=== PATIENT | female | born 2000 | race Caucasian/White ===

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

== ENCOUNTER 2019-02-20 16:38 | Emergency (ER) | payer BC ==
--- NOTE | 2019-02-20 17:24 | EDM.PDOC ---
ED HPI GENERAL MEDICAL PROBLEM - General Chief Complaint: Head Injury Stated Complaint: HIT HEAD Time Seen by Provider: 02/20/19 16:45 Source of Information: Reports: Patient History Limitations: Reports: No Limitations - History of Present Illness INITIAL COMMENTS - FREE TEXT/NARRATIVE: History of present illness: []Patient hit her head on a shelf at work approximately noon today without loss of consciousness. Patient shortly after became excessively sleepy and couldn't stay awake. She denies any nausea, vomiting, blurry vision, neck pain or numbness or tingling. Review of systems: As per history of present illness and below otherwise all systems reviewed and negative. Past medical history: As per history of present illness and as reviewed below otherwise noncontributory. Surgical history: As per history of present illness and as reviewed below otherwise noncontributory. Social history: No reported history of drug or alcohol abuse. Family history: As per history of present illness and as reviewed below otherwise noncontributory. Physical exam: General: Well developed, well nourished in NAD HEENT: Atraumatic, there is no hematoma or abrasion on the area on the superior scalp where she hit her head, normocephalic, pupils reactive, negative for conjunctival pallor or scleral icterus, mucous membranes moist, throat clear, neck supple, nontender, no vertebral tenderness to palpation, trachea midline. TMs clear, no hemotympanum Lungs: Clear to auscultation, breath sounds equal bilaterally, chest nontender. Heart: S1S2, regular, negative for clicks, rubs, or JVD. Abdomen: NABS, Soft, nondistended, nontender. Negative for masses or hepatosplenomegaly. Negative for costovertebral tenderness. Pelvis: Stable nontender. Genitourinary: Deferred. Rectal: Deferred. Extremities: Atraumatic, negative for cords or calf pain. Neurovascular unremarkable. Neuro: Awake, alert, oriented. Cranial nerves II through XII unremarkable. Cerebellum unremarkable. Motor and sensory unremarkable throughout. Exam nonfocal. Skin:warm and dry Diagnostics: None Therapeutics: Declined pain meds ED Course: Gave patient option for doing a CT scan versus watching, waiting and returning if symptoms worsens. She opts to return if symptoms worsen. Impression: Blunt head trauma Prescriptions: None Plan: follow up with your primary care physician, return to ER if symptoms worsen or change. Definitive disposition and diagnosis as appropriate pending reevaluation and review of above. general headache Pain Score (Numeric/FACES): 6 - Related Data Allergies Allergy/AdvReac Type Severity Reaction Status Date / Time No Known Allergies Allergy Verified 02/20/19 17:09 Home Meds: Home Meds . [No Known Home Meds] 12/04/17 [History] Past Medical History - Past Health History Medical/Surgical History: Denies Medical/Surgical History HEENT History: Reports: None Cardiovascular History: Reports: None Respiratory History: Reports: None Gastrointestinal History: Reports: None Other Musculoskeletal History: Spondylosis - pt worn back brace for 5 months 8 months ago, has hx of stress fracture in back Neurological History: Reports: Migraines Psychiatric History: Reports: None Endocrine/Metabolic History: Reports: None Immunologic History: Reports: None Oncologic (Cancer) History: Reports: None Dermatologic History: Reports: None - Infectious Disease History Infectious Disease History: Reports: None - Past Surgical History Female Surgical History: Reports: None Endocrine Surgical History: Reports: None Neurological Surgical History: Reports: None Social & Family History - Family History Family Medical History: Noncontributory - Tobacco Use Smoking Status *Q: Current Every Day Smoker Years of Tobacco use: 2 Packs/Tins Daily: 0.5 - Caffeine Use Caffeine Use: Reports: Coffee - Recreational Drug Use Recreational Drug Use: No ED ROS GENERAL - Review of Systems Review Of Systems: See Below ED EXAM, HEAD INJURY - Physical Exam Exam: See Below Course - Vital Signs Last Recorded V/S: Last Vital Signs Temp 97.4 F 02/20/19 17:07 Pulse 83 02/20/19 17:07 Resp 16 02/20/19 17:07 BP 134/92 H 02/20/19 17:07 Pulse Ox 99 02/20/19 17:07 Departure - Departure Time of Disposition: 17:28 Disposition: Home, Self-Care 01 Condition: Good Clinical Impression: Blunt head trauma Qualifiers: Encounter type: initial encounter Qualified Code(s): S09.8XXA - Other specified injuries of head, initial encounter - Discharge Information *PRESCRIPTION DRUG MONITORING PROGRAM REVIEWED*: Not Applicable *COPY OF PRESCRIPTION DRUG MONITORING REPORT IN PATIENT KIRILL: Not Applicable Referrals: PCP,None [Primary Care Provider] - Forms: ED Department Discharge Additional Instructions: The following information is given to patients seen in the emergency department who are being discharged to home. This information is to outline your options for follow-up care. We provide all patients seen in our emergency department with a follow-up referral. The need for follow-up, as well as the timing and circumstances, are variable depending upon the specifics of your emergency department visit. If you don't have a primary care physician on staff, we will provide you with a referral. We always advise you to contact your personal physician following an emergency department visit to inform them of the circumstance of the visit and for follow-up with them and/or the need for any referrals to a consulting specialist. The emergency department will also refer you to a specialist when appropriate. This referral assures that you have the opportunity for follow-up care with a specialist. All of these measure are taken in an effort to provide you with optimal care, which includes your follow-up. Under all circumstances we always encourage you to contact your private physician who remains a resource for coordinating your care. When calling for follow-up care, please make the office aware that this follow-up is from your recent emergency room visit. If for any reason you are refused follow-up, please contact the [facility] Emergency Department at and asked to speak to the emergency department charge nurse. Take meds as directed, follow up with your primary care physician, return to ER if symptoms worsen or change. [facility] [address] [place] [id number]
[2019-02-20 18:54] VITALS: BP 118/75; PULSE 82
== END 2019-02-20 17:40 | disposition home or self-care (01) ==
LOC: MW.ED 16:38
DX: S09.90XA Unspecified injury of head, initial encounter (principal); W22.03XA Walked into furniture, initial encounter; Y92.89 Other specified places as the place of occurrence of the external cause; Y99.0 Civilian activity done for income or pay
CPT/HCPCS: 99282; 99283

== ENCOUNTER 2019-10-17 19:17 | Emergency (ER) | payer BC ==
[2019-10-17] MEDS ORDERED: Sodium Chloride 0.9% 1,000 ML IV ONE (19:51)
[2019-10-17] MEDS ORDERED: Ondansetron 4 MG/2 ML SDV IVPUSH ONE ×2 (19:51→19:58)
--- NOTE | 2019-10-17 19:57 | EDM.PDOC ---
ED HPI GENERAL MEDICAL PROBLEM - General Chief Complaint: Gastrointestinal Problem Stated Complaint: ABDOMINAL PAIN,VOMITTING, MENSTRUATION PAIN Time Seen by Provider: 10/17/19 19:26 Source of Information: Reports: Patient History Limitations: Reports: No Limitations - History of Present Illness INITIAL COMMENTS - FREE TEXT/NARRATIVE: This is a 19-year-old female who presents to the emergency room with chief complaint of nausea vomiting inability to hold down any food for the last 2 to 3 days. Patient states that she has been vomiting for the past month. Patient denies any severe abdominal pain but cannot hold anything down and feels very dehydrated. Onset: Gradual Duration: Chronic (Gone for a month), Getting Worse Location: Reports: Abdomen Severity: Moderate Improves with: Reports: None Worsens with: Reports: None Associated Symptoms: Reports: No Other Symptoms, Nausea/Vomiting epigastric Pain Score (Numeric/FACES): 10 - Related Data Allergies Allergy/AdvReac Type Severity Reaction Status Date / Time No Known Allergies Allergy Verified 10/17/19 19:43 Home Meds: Home Meds Aspirin 81 mg PO DAILY 10/17/19 [History] Control 1 tab PO DAILY 10/17/19 [History] Ondansetron [Zofran ODT] 8 mg PO Q6H PRN #30 tab.dis 10/17/19 [Rx] buprenorphine HCL [Belbuca] 150 mg PO DAILY 10/17/19 [History] Past Medical History - Past Health History Medical/Surgical History: Denies Medical/Surgical History HEENT History: Reports: None Cardiovascular History: Reports: None Respiratory History: Reports: None Gastrointestinal History: Reports: None Genitourinary History: Reports: None 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 Musculoskeletal History: Reports: Other (See Below) Other Musculoskeletal History: Spondylosis - pt worn back brace for 5 months 8 months ago, has hx of stress fracture in back Neurological History: Reports: Migraines Psychiatric History: Reports: None Endocrine/Metabolic History: Reports: None Hematologic History: Reports: None Immunologic History: Reports: None Oncologic (Cancer) History: Reports: None Dermatologic History: Reports: None - Infectious Disease History Infectious Disease History: Reports: None - Past Surgical History Head Surgeries/Procedures: Reports: None HEENT Surgical History: Reports: None Cardiovascular Surgical History: Reports: None Respiratory Surgical History: Reports: None GI Surgical History: Reports: None Female Surgical History: Reports: None Endocrine Surgical History: Reports: None Neurological Surgical History: Reports: None Musculoskeletal Surgical History: Reports: None Oncologic Surgical History: Reports: None Dermatological Surgical History: Reports: None Social & Family History - Family History Family Medical History: Noncontributory - Tobacco Use Smoking Status *Q: Current Some Day Smoker Years of Tobacco use: 3 Packs/Tins Daily: 0.3 - Caffeine Use Caffeine Use: Reports: Coffee, Energy Drinks, Soda, Tea - Recreational Drug Use Recreational Drug Use: Yes Recreational Drug Type: Reports: Marijuana/Hashish Recreational Drug Use Frequency: Rarely ED ROS GENERAL - Review of Systems Review Of Systems: See Below Constitutional: Reports: No Symptoms HEENT: Reports: No Symptoms Respiratory: Reports: No Symptoms Cardiovascular: Reports: No Symptoms Endocrine: Reports: No Symptoms GI/Abdominal: Reports: Abdominal Pain : Reports: No Symptoms Musculoskeletal: Reports: No Symptoms Skin: Reports: No Symptoms Psychiatric: Reports: No Symptoms Hematologic/Lymphatic: Reports: No Symptoms Immunologic: Reports: No Symptoms ED EXAM, GI/ABD - Physical Exam Exam: See Below Exam Limited By: No Limitations General Appearance: Alert, WD/WN, No Apparent Distress Eyes: Bilateral: Normal Appearance Ears: Normal External Exam, Normal Canal, Hearing Grossly Normal, Normal TMs Nose: Normal Inspection Throat/Mouth: Normal Inspection, Normal Lips, Normal Teeth, Normal Gums, Normal Oropharynx, Normal Voice, No Airway Compromise Head: Atraumatic, Normocephalic Neck: Normal Inspection, Supple, Non-Tender, Full Range of Motion Respiratory/Chest: No Respiratory Distress, Lungs Clear, Normal Breath Sounds, No Accessory Muscle Use, Chest Non-Tender Cardiovascular: Normal Peripheral Pulses, Regular Rate, Rhythm, No Edema, No Gallop, No JVD, No Murmur, No Rub GI/Abdominal Exam: Normal Bowel Sounds, Soft, Non-Tender, No Organomegaly, No Distention, No Abnormal Bruit, No Mass (Female) Exam: Deferred Rectal (Female) Exam: Deferred Back Exam: Normal Inspection, Full Range of Motion Extremities: Normal Inspection, Normal Range of Motion, Non-Tender, Normal Capillary Refill, No Pedal Edema Neurological: Alert, Oriented, CN II-XII Intact, Normal Cognition, Normal Gait, Normal Reflexes, No Motor/Sensory Deficits Psychiatric: Normal Affect, Normal Mood Skin Exam: Warm, Dry, Intact, Normal Color, No Rash Lymphatic: No Adenopathy Course - Vital Signs Text/Narrative:: 19-year-old female presents to the emergency room chief complaint of abdominal pain nausea and vomiting this been going on for a month. Patient's electrolytes appear to be normal. Patient given IV fluids states she feels better. Patient also given Zofran. Still having some abdominal pain. Patient will be discharged home to see follow-up with a physician. Last Recorded V/S: Last Vital Signs Temp 97.4 F 10/17/19 19:41 Pulse 112 H 10/17/19 19:41 Resp 18 10/17/19 19:41 BP Pulse Ox 98 10/17/19 19:41 - Orders/Labs/Meds Orders: Active Orders 24 hr Category Date Time Status MVI, Adult with Vitamin K [Infuvite Adult] 10 ml Med 10/17/19 21:00 Active Thiamine [Vitamin B-1] 100 mg Folic Acid 1 mg Sodium Chloride 0.9% [Normal Saline] 1,000 ml IV ONETIME Medication Orders Multivitamins/Minerals 10 ml/Thiamine HCl 100 mg/ Folic Acid 1 mg/ Sodium Chloride 1,011.2 mls @ 200 mls/hr IV ONETIME ONE Stop: 10/18/19 02:03 Last Admin: 10/17/19 22:08 Dose: 999 mls/hr Labs: Laboratory Tests 10/17/19 10/17/19 10/17/19 Range/Units 19:46 20:08 20:08 WBC 14.81 H (4.0-11.0) K/uL RBC 4.67 (4.30-5.90) M/uL Hgb 13.9 (12.0-16.0) g/dL Hct 42.0 (36.0-46.0) % MCV 89.9 (80.0-98.0) fL MCH 29.8 (27.0-32.0) pg MCHC 33.1 (31.0-37.0) g/dL RDW Std Deviation 42.4 (28.0-62.0) fl RDW Coeff of Felicity 13 (11.0-15.0) % Plt Count 329 (150-400) K/uL MPV 9.60 (7.40-12.00) fL Neut % (Auto) 64.2 (48.0-80.0) % Lymph % (Auto) 24.7 (16.0-40.0) % Schley % (Auto) 8.2 (0.0-15.0) % Eos % (Auto) 2.2 (0.0-7.0) % Baso % (Auto) 0.7 (0.0-1.5) % Neut # (Auto) 9.5 H (1.4-5.7) K/uL Lymph # (Auto) 3.7 H (0.6-2.4) K/uL Schley # (Auto) 1.2 H (0.0-0.8) K/uL Eos # (Auto) 0.3 (0.0-0.7) K/uL Baso # (Auto) 0.1 (0.0-0.1) K/uL Nucleated RBC % 0.0 /100WBC Nucleated RBCs # 0 K/uL Sodium 138 (136-145) mmol/L Potassium 3.3 L (3.5-5.1) mmol/L Chloride 103 (98-107) mmol/L Carbon Dioxide 25.5 (21.0-32.0) mmol/L BUN 12 (7.0-18.0) mg/dL Creatinine 1.0 (0.6-1.0) mg/dL Est Cr Clr Drug Dosing 77.49 mL/min Estimated GFR (MDRD) > 60.0 ml/min Glucose 96 (74-106) mg/dL Calcium 8.9 (8.5-10.1) mg/dL Total Bilirubin 0.5 (0.2-1.0) mg/dL AST 28 (15-37) IU/L ALT 43 (14-63) IU/L Alkaline Phosphatase 66 (46-116) U/L Total Protein 7.0 (6.4-8.2) g/dL Albumin 3.7 (3.4-5.0) g/dL Globulin 3.3 (2.6-4.0) g/dL Albumin/Globulin Ratio 1.1 (0.9-1.6) Lipase 72 L (73-393) U/L Urine HCG, Qual NEGATIVE (NEGATIVE) Meds: Medications Generic Name Dose Route Start Last Admin Trade Name Freq PRN Reason Stop Dose Admin Multivitamins/Minerals 10 ml/ 1,011.2 mls @ 200 mls/hr 10/17/19 21:00 22:08 Thiamine HCl 100 mg/ Folic IV 10/18/19 02:03 999 mls/hr Acid 1 mg/ Sodium Chloride ONETIME ONE Administration Discontinued Medications Generic Name Dose Route Start Last Admin Trade Name Yoko PRN Reason Stop Dose Admin Sodium Chloride 1,000 mls @ 1,000 mls/hr 10/17/19 19:51 10/17/19 20:09 Normal Saline IV 10/17/19 20:50 1,000 mls/hr .Bolus ONE Administration Iopamidol 100 ml 10/17/19 21:41 10/17/19 21:42 Isovue-370 (76%) IVPUSH 10/17/19 21:42 100 ml ONETIME ONE Administration Ondansetron HCl 8 mg 10/17/19 19:58 10/17/19 20:09 Zofran IVPUSH 10/17/19 19:59 8 mg ONETIME ONE Administration Departure - Departure Time of Disposition: 22:30 Disposition: Home, Self-Care 01 Condition: Good Clinical Impression: Gastroenteritis - Discharge Information Instructions: Viral Gastroenteritis, Adult, [id number] Referrals: PCP,None [Primary Care Provider] - Forms: ED Department Discharge Additional Instructions: Patient needs to follow-up with GI. Sepsis Event Note - Evaluation Sepsis Screening Result: No Definite Risk - Focused Exam Vital Signs: Vital Signs Temp Pulse Resp Pulse Ox 10/17/19 19:41 97.4 F 112 H 18 98 Date Exam was Performed: 10/17/19 Time Exam was Performed: 22:28 - My Orders Last 24 Hours: My Active Orders 10/17/19 21:00 MVI, Adult with Vitamin K [Infuvite Adult] 10 ml Thiamine [Vitamin B-1] 100 mg Folic Acid 1 mg Sodium Chloride 0.9% [Normal Saline] 1,000 ml IV ONETIME - Assessment/Plan Last 24 Hours: My Active Orders 10/17/19 21:00 MVI, Adult with Vitamin K [Infuvite Adult] 10 ml Thiamine [Vitamin B-1] 100 mg Folic Acid 1 mg Sodium Chloride 0.9% [Normal Saline] 1,000 ml IV ONETIME
[2019-10-17 20:51] LABS: BLOOD UREA NITROGEN,BUN 12 mg/dL (7.0-18.0); CARBON DIOXIDE,CO2 25.5 mmol/L (21.0-32.0); CHLORIDE,CL 103 mmol/L (98-107); GLUCOSE RANDOM 96 mg/dL (74-106); LIPASE 72 U/L (73-393); POTASSIUM,K 3.3 mmol/L (3.5-5.1); SODIUM,NA 138 mmol/L (136-145)
[2019-10-17] MEDS ORDERED: MVI, Adult with Vitamin K 10 ML, Thiamine 100 MG, Folic Acid 1 MG in Sodium Chloride 0.... IV ONE ×4 (21:00)
[2019-10-17] MEDS ORDERED: Iopamidol 755 Mg/ML 100 ML Bottle IVPUSH ONE (21:41)
--- NOTE | 2019-10-17 21:58 | CT ---
CT abdomen and pelvis Technique: Multiple axial sections were obtained from above the dome of the diaphragm inferiorly through the pubic symphysis. Intravenous contrast was utilized. No oral contrast has been given. Comparison: No prior abdominal imaging is available. Findings: Visualized portions of both lung bases show nothing acute. Very small nodule is identified within the right middle lobe measuring less than 1 mm which is believed to be incidental. Several small subpleural nodules are also seen within the left lung base also felt to be incidental. Low density is noted next to the ligamentum teres fissure which is believed to be normal. No focal abnormality is otherwise appreciated within the liver. Spleen appears normal. Adrenal glands show no nodule. Kidneys show symmetric contrast enhancement without hydronephrosis or mass. Pancreas is within normal limits. Gallbladder contains no calcified gallstones. Aorta shows no aneurysm. No retroperitoneal adenopathy or mesenteric abnormalities are seen. Appendix is seen which is normal in size. No pelvic mass or adenopathy is seen. No free fluid or inflammatory change is seen. Bone window settings were reviewed. Spondylolytic defects are noted at L5-S1 with no spondylolisthesis. No additional bony abnormality is appreciated. Impression: 1. Spondylolisthesis defects at L5-S1 with no spondylolisthesis. 2. Other findings believed to be incidental as noted above. 3. Nothing acute is appreciated on CT study of the abdomen and pelvis. Diagnostic code #2 This report was dictated in MDT
[2019-10-17] MEDS ORDERED: Ketorolac 30 MG/ML SDV IVPUSH ONE (22:30)
[2019-10-17 22:55] VITALS: BP 125/89; PULSE 89
== END 2019-10-17 22:47 | disposition home or self-care (01) ==
LOC: MW.ED 19:17
DX: K52.9 Noninfective gastroenteritis and colitis, unspecified (principal); F17.210 Nicotine dependence, cigarettes, uncomplicated; Z79.82 Long term (current) use of aspirin
CPT/HCPCS: 36415; 74177; 80053; 81025; 83690; 85025; 96361; 96365; 96375; 99284; J1885; J2405; J3411; J7030; Q9967; 99283

== ENCOUNTER 2019-12-11 06:34 | Day surgery (SDC) | payer BC ==
[~2019-12-11 06:34] MED LIST: Lactated Ringers 1,000 ML IV SCH; Sodium Chloride 0.9% 10 ML SDV IV PRN; Sodium Chloride 0.9% 10 ML Syringe FLUSH PRN; Sodium Chloride 0.9% 2.5 ML Syringe FLUSH PRN; ceFAZolin 2 GM in Premix Bag 1 BAG IV ONE
[2019-12-11] MEDS ORDERED: Scopolamine 1.5 MG Transdermal Patch TRDERM PRN (06:58)
[2019-12-11] MEDS ORDERED: Scopolamine 1.5 MG Transdermal Patch ONE (06:59)
--- NOTE | 2019-12-11 07:04 | PCM.PREANE ---
Preanesthetic Assessment - Anesthesia/Transfusion/Family Hx Anesthesia History: No Prior Anesthesia Family History of Anesthesia Reaction: No Transfusion History: No Prior Transfusion(s) Intubation History: Unknown - Review of Systems General: No Symptoms Pulmonary: No Symptoms Cardiovascular: No Symptoms Gastrointestinal: No Symptoms Neurological: No Symptoms Other: Reports: None - Physical Assessment Vital Signs: Last Vital Signs Temp 36.2 C 12/11/19 06:42 Pulse 90 12/11/19 06:42 Resp 16 12/11/19 06:42 BP 130/72 12/11/19 06:42 Pulse Ox 97 12/11/19 06:42 Height: 5 ft 4 in Weight: 93.44 kg ASA Class: 2 Mental Status: Alert & Oriented x3 Airway Class: Mallampati = 1 Dentition: Reports: Normal Dentition (two small chips on front upper incisors) Thyro-Mental Finger Breadths: 3 Mouth Opening Finger Breadths: 3 ROM/Head Extension: Full Lungs: Clear to Auscultation, Normal Respiratory Effort Cardiovascular: Regular Rate, Regular Rhythm - Lab Values: Laboratory Last Values Urine HCG, Qual NEGATIVE (NEGATIVE) 12/11/19 06:45 - Allergies Allergies/Adverse Reactions: Allergies Allergy/AdvReac Type Severity Reaction Status Date / Time Bleach (Sodium Hypochlorite) Allergy Rash Verified 12/07/19 10:33 - Blood Blood Available: No - Anesthesia Plan Pre-Op Medication Ordered: None - Acknowledgements Anesthesia Type Planned: General Anesthesia Pt an Appropriate Candidate for the Planned Anesthesia: Yes Alternatives and Risks of Anesthesia Discussed w Pt/Guardian: Yes Pt/Guardian Understands and Agrees with Anesthesia Plan: Yes PreAnesthesia Questionnaire - Past Health History Medical/Surgical History: Denies Medical/Surgical History HEENT History: Reports: Other (See Below) Other HEENT History: wears glasses Cardiovascular History: Reports: None Respiratory History: Reports: None Gastrointestinal History: Reports: Chronic Diarrhea, GERD, Other (See Below) Other Gastrointestinal History: nausea and vomiting Genitourinary History: Reports: None 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 Musculoskeletal History: Reports: Fracture Other Musculoskeletal History: occasional back pain, hx of stress fx in back- wore brace Neurological History: Reports: Concussion, Migraines Psychiatric History: Reports: Anxiety, Depression Endocrine/Metabolic History: Reports: Obesity/BMI 30+ (BMI 35.4) Hematologic History: Reports: None Immunologic History: Reports: None Oncologic (Cancer) History: Reports: None Dermatologic History: Reports: None - Infectious Disease History Infectious Disease History: Reports: None - Past Surgical History Head Surgeries/Procedures: Reports: None - SUBSTANCE USE Smoking Status *Q: Current Every Day Smoker (1 ppd) Tobacco Use Within Last Twelve Months: Cigarettes Recreational Drug Use History: Yes Recreational Drug Type: Reports: Marijuana/Hashish - HOME MEDS Home Medications: Home Meds Ondansetron [Zofran ODT] 8 mg PO Q6H PRN #30 tab.dis 10/17/19 [Rx] Zofran Patch 1 patch TOP ASDIRECTED 12/07/19 [History] - CURRENT (IN HOUSE) MEDS Current Meds: Current Medications Lactated Ringer's (Ringers, Lactated) 1,000 mls @ 125 mls/hr IV ASDIRECTED STONEY Sodium Chloride (Saline Flush) 2.5 ml FLUSH ASDIRECTED PRN PRN Reason: Keep Vein Open Sodium Chloride (Normal Saline) 10 ml IV ASDIRECTED PRN PRN Reason: IV Use Sodium Chloride (Saline Flush) 10 ml FLUSH ASDIRECTED PRN PRN Reason: Keep Vein Open Discontinued Medications Cefazolin Sodium/Dextrose 2 gm (/ Premix) 50 mls @ 100 mls/hr IV ONETIME ONE Stop: 12/09/19 23:27
[2019-12-11] MEDS ORDERED: Dexamethasone 4 MG/ML 5 ML MDV ONE (07:10)
[2019-12-11] MEDS ORDERED: Lidocaine 2% 5 ML SDV ONE ×2 (07:10→07:50)
[2019-12-11] MEDS ORDERED: Ondansetron 4 MG/2 ML SDV ONE (07:10)
[2019-12-11] MEDS ORDERED: Ketamine 500 mg/10 ML MDV ONE (07:11)
[2019-12-11] MEDS ORDERED: Midazolam 1 MG/ML 2 ML SDV ONE (07:11)
[2019-12-11] MEDS ORDERED: fentaNYL 250 MCG/5 ML SDV ONE (07:11)
[2019-12-11] MEDS ORDERED: Propofol 200 MG/20 ML SDV ONE ×2 (07:11)
[2019-12-11] MEDS ORDERED: Rocuronium Bromide 50 MG/5 ML Syringe ONE (07:17)
[2019-12-11] MEDS ORDERED: Bupivacaine 0.5% 30 ML SDV ONE (07:30)
[2019-12-11] MEDS ORDERED: ceFAZolin/Dextrose,Iso-Osmotic 2 GM/50 ML Duplex Bag IV ONE (08:00)
[2019-12-11] MEDS ORDERED: Glycopyrrolate 0.2 MG/ML SDV ONE ×2 (08:37→09:08)
[2019-12-11] MEDS ORDERED: Ketorolac 30 MG/ML SDV ONE (09:10)
[2019-12-11] MEDS ORDERED: Acetaminophen 1,000 MG in Premix Bag 1 BAG IV ONE (09:40)
[2019-12-11] MEDS ORDERED: Acetaminophen/oxyCODONE 325-5 MG Tab PO PRN (09:49)
--- NOTE | 2019-12-11 09:53 | PCM.OPNOTE ---
- General Post-Op/Procedure Note Date of Surgery/Procedure: 12/11/19 Operative Procedure(s): Laparoscopic cholecystectomy Findings: Normal appearing gallbladder Pre Op Diagnosis: Biliary dyskinesia Post-Op Diagnosis: same Anesthesia Technique: General ET Tube Primary Surgeon: Domi Medina Fluid Replacement, Intraop: 2,000 Output, Urine Amount: 10 EBL in mLs: 5 Condition: Good
[2019-12-11] MEDS: fentaNYL 100 MCG/2 ML SDV IVPUSH PRN ×2 (10:01→10:07)
--- NOTE | 2019-12-11 10:28 | PCM.POSTAN ---
POST ANESTHESIA ASSESSMENT - MENTAL STATUS Mental Status: Alert, Oriented - VITAL SIGNS Vital Signs: Last Vital Signs Temp 35.9 C L 12/11/19 09:31 Pulse 74 12/11/19 10:11 Resp 12 12/11/19 10:11 BP 106/41 L 12/11/19 10:11 Pulse Ox 99 12/11/19 10:11 - RESPIRATORY Respiratory Status: Respiratory Rate WNL, Airway Patent, O2 Saturation Stable - CARDIOVASCULAR CV Status: Pulse Rate WNL, Blood Pressure Stable - GASTROINTESTINAL GI Status: No Symptoms - PAIN Pain Score: 4 - POST OP HYDRATION Hydration Status: Adequate & Stable - OBSERVATIONS Free Text/Narrative:: No anesthesia problems
[2019-12-11 10:53] VITALS: BP 109/52; PULSE 56
--- NOTE | 2019-12-11 11:37 | PCM48HPAN ---
Post Anesthesia Note - EVALUATION WITHIN 48HRS OF ANESTHETIC Vital Signs in Normal Range: Yes Patient Participated in Evaluation: Yes Respiratory Function Stable: Yes Airway Patent: Yes Cardiovascular Function Stable: Yes Hydration Status Stable: Yes Pain Control Satisfactory: Yes Nausea and Vomiting Control Satisfactory: Yes Mental Status Recovered: Yes Vital Signs: Last Vital Signs Temp 36.3 C 12/11/19 10:22 Pulse 56 L 12/11/19 10:52 Resp 14 12/11/19 10:52 BP 109/52 L 12/11/19 10:52 Pulse Ox 98 12/11/19 10:52 - COMMENTS/OBSERVATIONS Free Text/Narrative:: No anesthesia problems
--- NOTE | 2019-12-11 13:46 | OR ---
SURGEON: DOMI MEDINA MD DATE OF PROCEDURE: 12/11/2019 PREOPERATIVE DIAGNOSIS: Biliary dyskinesia. POSTOPERATIVE DIAGNOSIS: Biliary dyskinesia. PROCEDURE PERFORMED: Laparoscopic cholecystectomy. PRIMARY SURGEON: Doim Medina MD. ANESTHESIA: General endotracheal anesthesia. FLUIDS: 2000 mL crystalloid. ESTIMATED BLOSS LOSS: 5 mL. URINE OUTPUT: 10 mL. FINDINGS: Normal-appearing gallbladder. COMPLICATIONS: None. INDICATIONS: The patient is a 19-year-old female who presents with biliary dyskinesia. She has had 2 months of severe postprandial nausea and abdominal pain. A recent HIDA scan showed an ejection fraction of 9% consistent with biliary dyskinesia. I explained the need for cholecystectomy. I described both the laparoscopic and open procedure to the patient. I will attempt this laparoscopically, but convert to open should I be unable to perform it safely. I explained the expected perioperative course as well as the risks including bleeding, infection, or damage to surrounding structures. The patient verbalized understanding and wishes to proceed. PROCEDURE IN DETAIL: The patient was brought into the OR and placed on the OR table in supine position. A time-out was completed verifying the patient's name, age, date of , allergies, and procedure to be performed. General endotracheal anesthesia was induced. The left arm was tucked to the patient's side and a Beaver catheter placed. The abdomen was prepped and draped in usual standard fashion. I anesthetized the infraumbilical fold with 0.5% Marcaine plain. An 11 blade was used to make an incision along the infraumbilical fold. Cautery was used to dissect down through to the subcutaneous fat layer. I then bluntly dissected down to the fascia. The fascia was elevated with Talha's and incised sharply with a curved Mata scissors. I grasped the posterior sheath and opened this up in a similar fashion. I then grasped the peritoneum with hemostats and opened this as well. Entry into the abdomen was palpated digitally. A 12 mm Kecia trocar was placed in the abdomen and the abdomen insufflated. A 5 mm 30- degree scope was inserted. I inspected the area underneath my initial trocar placement. No damage to surrounding structures was noted. The patient was then placed into reverse Trendelenburg position and airplaned slightly to the left. A 5 mm trocars were placed in the following locations under direct visualization; one in the epigastric area, one in the right flank, and one 2 fingerbreadths below the right subcostal margin in the midclavicular line. The dome of the gallbladder was grasped and elevated cranially. The patient had no adhesions to the gallbladder and the gallbladder overall appeared normal. I began my dissection along the infundibulum. Using a combination of blunt dissection and hook cautery, I dissected the peritoneal attachments around the cystic duct and artery. I then dissected the gallbladder off the proximal one- third of the cystic plate. Once my critical view was achieved, a photograph was taken. I doubly clipped and ligated both my cystic duct and artery. I then removed the gallbladder from the gallbladder fossa using electrocautery. Once it was freed from the liver bed, it was placed in an Endo Catch bag and removed through the infraumbilical port site. A trocar was placed back in the abdomen and I inspected my operative field. The area was hemostatic with no evidence of bile leakage. The clips appeared to be in good position. The 5 mm trocars were then removed under direct visualization and the abdomen allowed to desufflate. The 12 mm Kecia trocar was removed as well. I closed the fascia at the infraumbilical port site with interrupted 0 Vicryl sutures. The subcutaneous fat layer was closed with interrupted 3-0 Vicryl sutures. The skin was closed with a running 4-0 Monocryl stitch. The 5 mm trocar sites were closed with interrupted 4-0 Monocryl sutures. Steri-Strips and sterile dressings were applied. The patient tolerated the procedure well and was transferred to the PACU in stable condition. The patient was given another L of fluid in the PACU and started to have good urine output. The Beaver was then removed. All counts were complete and correct at the end of the case. ANTONETTE / MARC /[id number]
== END 2019-12-11 11:48 | disposition home or self-care (01) ==
LOC: MW.SDS 06:34
PROVIDERS: ATTEND Surgery
DX: K81.1 Chronic cholecystitis (principal); F41.9 Anxiety disorder, unspecified; F32.9 Major depressive disorder, single episode, unspecified; G89.29 Other chronic pain; M43.17 Spondylolisthesis, lumbosacral region; F17.210 Nicotine dependence, cigarettes, uncomplicated; K21.9 Gastro-esophageal reflux disease without esophagitis; Z79.899 Other long term (current) drug therapy; Z68.35 Body mass index [BMI] 35.0-35.9, adult; Z79.82 Long term (current) use of aspirin
CPT/HCPCS: 00790; 81025; 88304; A9270-GY; J0131; J0690; J1100; J1885; J2001; J2250; J2405; J2704; J3010; J3490; J7120

== ENCOUNTER 2021-06-15 09:50 | Inpatient (IN) | payer OTHER, MEDICAID ==
[2021-06-15] MEDS ORDERED: Acetaminophen 500 MG Tab PO ONE (10:38)
[2021-06-15] MEDS ORDERED: Tranexamic Acid 1,000 MG in Sodium Chloride 0.9% 100 ML IV PRN (11:35)
[2021-06-15] MEDS ORDERED: Carboprost Tromethamine 250 MCG/1 ML Amp IM PRN (11:35)
[2021-06-15] MEDS ORDERED: Sodium Chloride 0.9% 20 ML SDV IV PRN (11:35)
[2021-06-15] MEDS ORDERED: Methylergonovine 0.2 MG/1 ML Amp IM PRN (11:35)
[2021-06-15] MEDS ORDERED: Sodium Chloride 0.9% 10 ML Syringe FLUSH PRN (11:35)
[2021-06-15] MEDS ORDERED: Misoprostol 200 MCG Tab PO PRN (11:35)
[2021-06-15] MEDS ORDERED: Water For Irrigation,Sterile 1,000 ML Container IRR PRN (11:35)
[2021-06-15] MEDS ORDERED: Sodium Chloride 0.9% 2.5 ML Syringe FLUSH PRN (11:35)
[2021-06-15] MEDS ORDERED: Nalbuphine 10 MG/1 ML Vial IVPUSH PRN (11:35)
[2021-06-15] MEDS ORDERED: Lidocaine 1% 20 ML MDV INJECT PRN (11:40)
[2021-06-15] MEDS ORDERED: Oxytocin/0.9 % Sodium Chloride 30 UNIT/500 ML BAG IV SCH ×2 (11:45→21:45)
[2021-06-15] MEDS: Butorphanol 1 MG/ML SDV IVPUSH PRN ×2 (13:12→22:13)
[2021-06-15] MEDS: Lactated Ringers 1,000 ML IV SCH (23:47)
[2021-06-16] MEDS: Butorphanol 1 MG/ML SDV IVPUSH PRN (01:49)
[2021-06-16] MEDS: Lactated Ringers 1,000 ML IV SCH (02:50)
[2021-06-16] MEDS ORDERED: Ropivacaine HCl/PF 100 ML ONE (03:13)
[2021-06-16] MEDS ORDERED: Ropivacaine HCl/PF 200 MG in Premix Bag 1 BAG EPIDUR SCH (03:30)
[2021-06-16] MEDS ORDERED: ePHEDrine 50 MG/ML SDV IVPUSH PRN (03:30)
[2021-06-16] MEDS ORDERED: Lanolin 100% Cream 7 GM Tube TOP PRN (09:22)
[2021-06-16] MEDS ORDERED: Benzocaine/Menthol 20%-0.5% Spray 78 GM Cannister TOP PRN (09:22)
[2021-06-16] MEDS ORDERED: Ibuprofen 800 MG Tab PO PRN (09:22)
[2021-06-16] MEDS ORDERED: Bisacodyl 10 MG Supp RECTAL PRN (09:22)
[2021-06-16] MEDS ORDERED: Acetaminophen 500 MG Tab PO PRN ×2 (09:22)
[2021-06-16] MEDS ORDERED: Measles, Mumps & Rubella Vaccine 0.5 ML SDV SUBCUT ONE (09:22)
[2021-06-16] MEDS ORDERED: Docusate Sodium 100 MG Cap PO PRN (09:22)
[2021-06-16] MEDS ORDERED: Ibuprofen 400 MG Tab PO PRN (09:22)
[2021-06-16] MEDS ORDERED: Witch Hazel Medicated Pads 40/Jar TOP PRN (09:22)
[2021-06-16] MEDS ORDERED: oxyCODONE 5 MG Tab PO PRN (09:22)
[2021-06-17 15:42] VITALS: BP 145/69; PULSE 79
== END 2021-06-17 19:10 | disposition home or self-care (01) | DRG 807 ==
LOC: MW.OBCHECK 09:50 → MW.OB 09:54 → MW.OBCHECK 11:30 → MW.OB 11:35 → OBSVTOIN 06-16 08:55 → MW.OB 06-16 13:30
PROVIDERS: ADMIT Obstetrics & Gynecology; ATTEND Obstetrics & Gynecology
PROC: 10E0XZZ Delivery of Products of Conception, External Approach (ICD-10-PCS; principal; 2021-06-16)
PROC: 10907ZC Drainage of Amniotic Fluid, Therapeutic from Products of Conception, Via Natural or Artificial Opening (ICD-10-PCS; 2021-06-16)
PROC: 3E0R3BZ Introduction of Anesthetic Agent into Spinal Canal, Percutaneous Approach (ICD-10-PCS; 2021-06-16)
PROC: 00HU33Z Insertion of Infusion Device into Spinal Canal, Percutaneous Approach (ICD-10-PCS; 2021-06-16)
PROC: 3E0234Z Introduction of Serum, Toxoid and Vaccine into Muscle, Percutaneous Approach (ICD-10-PCS; 2021-06-17)
DX: O99.62 Diseases of the digestive system complicating childbirth (principal); Z37.0 Single live birth; K21.9 Gastro-esophageal reflux disease without esophagitis; O99.214 Obesity complicating childbirth; O99.334 Smoking (tobacco) complicating childbirth; F17.210 Nicotine dependence, cigarettes, uncomplicated; Z86.16 Personal history of COVID-19; Z3A.37 37 weeks gestation of pregnancy; Z88.8 Allergy status to other drugs, medicaments and biological substances; Z23 Encounter for immunization
CPT/HCPCS: 36415; 51702; 59025; 59409; 85014; 85018; 85027; 86592; 86850; 86900; 86901; 90707; A9270-GY; J0595; J2590; J2795; J7120

== ENCOUNTER 2021-11-09 11:15 | Emergency (ER) | payer OTHER, MEDICAID ==
[2021-11-09] MEDS ORDERED: Acetaminophen/oxyCODONE 325-5 MG Tab PO ONE (11:31)
[2021-11-09] MEDS ORDERED: Ibuprofen 600 MG Tab PO ONE (11:32)
[2021-11-09 13:02] VITALS: BP 119/69; PULSE 79
== END 2021-11-09 13:03 | disposition home or self-care (01) ==
LOC: MW.ED 11:15
DX: S80.11XA Contusion of right lower leg, initial encounter (principal); E66.9 Obesity, unspecified; F17.210 Nicotine dependence, cigarettes, uncomplicated; Z68.32 Body mass index [BMI] 32.0-32.9, adult; Z88.8 Allergy status to other drugs, medicaments and biological substances; W01.0XXA Fall on same level from slipping, tripping and stumbling without subsequent striking against object, initial encounter
CPT/HCPCS: 73590; 93971; 99284; A9270

== ENCOUNTER 2021-11-09 13:42 | Emergency (ER) | payer OTHER, MEDICAID ==
[2021-11-09] MEDS ORDERED: LORazepam 2 MG/ML SDV IVPUSH ONE (13:44)
[2021-11-09 14:40] LABS: BLOOD UREA NITROGEN,BUN 8 mg/dL (7.0-18.0); CARBON DIOXIDE,CO2 22.9 mmol/L (21.0-32.0); CHLORIDE,CL 108 mmol/L (98-107); GLUCOSE RANDOM 97 mg/dL (74-106); POTASSIUM,K 3.5 mmol/L (3.5-5.1); SODIUM,NA 141 mmol/L (136-145)
[2021-11-09 14:52] LABS: ESTIMATED GFR 93 mL/min (>60)
[2021-11-09] MEDS ORDERED: Iopamidol 755 MG/ML 500 ML Multipack Bottle IVPUSH STA (15:08)
[2021-11-09 16:34] VITALS: BP 120/60; PULSE 75
== END 2021-11-09 16:29 | disposition home or self-care (01) ==
LOC: MW.ED 13:42
DX: R07.9 Chest pain, unspecified (principal); E66.9 Obesity, unspecified; Z68.32 Body mass index [BMI] 32.0-32.9, adult; Z91.048 Other nonmedicinal substance allergy status; Z86.16 Personal history of COVID-19
CPT/HCPCS: 36415; 71275; 80053; 84443; 84484; 84703; 85025; 93005; 96374; 99285; J2060; Q9967; 93010; 99284

== ENCOUNTER 2021-11-13 20:44 | Emergency (ER) | payer OTHER, MEDICAID ==
[2021-11-13] MEDS ORDERED: Ketorolac 30 MG/ML SDV IM ONE (21:04)
[2021-11-13] MEDS ORDERED: ALPRAZolam 0.25 MG Tab PO STA (21:04)
[2021-11-13 22:56] VITALS: BP 110/80; PULSE 73
== END 2021-11-13 22:54 | disposition home or self-care (01) ==
LOC: MW.ED 20:44
DX: R07.9 Chest pain, unspecified (principal); R06.4 Hyperventilation; Z91.048 Other nonmedicinal substance allergy status
CPT/HCPCS: 36415; 71045; 84484; 93005; 96372; 99285; A9270; J1885; 99283

== ENCOUNTER 2024-05-17 17:44 | Emergency (ER) | payer MEDICAID ==
[2024-05-17 18:27] VITALS: BP 146/74
[2024-05-17] MEDS: Methocarbamol 750 MG Tab PO STA (20:08)
[2024-05-17] MEDS: Acetaminophen 500 MG Tab PO STA (20:08)
[2024-05-17 21:22] VITALS: PULSE 85
== END 2024-05-17 21:21 | disposition home or self-care (01) ==
LOC: MW.ED 17:44
DX: M62.830 Muscle spasm of back (principal); F17.210 Nicotine dependence, cigarettes, uncomplicated; E66.9 Obesity, unspecified; Z86.16 Personal history of COVID-19; Z79.899 Other long term (current) drug therapy; Z91.048 Other nonmedicinal substance allergy status; Z75.8 Other problems related to medical facilities and other health care; Z68.32 Body mass index [BMI] 32.0-32.9, adult
CPT/HCPCS: 99283; A9270

== ENCOUNTER 2025-01-26 12:49 | Emergency (ER) | payer MEDICAID ==
[2025-01-26] MEDS: Ondansetron 4 MG/2 ML SDV IVPUSH ONE (13:15)
[2025-01-26] MEDS: diphenhydrAMINE 50 MG/ML SDV IVPUSH ONE (13:15)
[2025-01-26] MEDS: Ketorolac 30 MG/ML SDV IVPUSH ONE (13:15)
[2025-01-26 14:32] VITALS: BP 104/45; PULSE 82
== END 2025-01-26 14:41 | disposition home or self-care (01) ==
LOC: MW.ED 12:49
DX: G43.909 Migraine, unspecified, not intractable, without status migrainosus (principal); E66.9 Obesity, unspecified; Z75.3 Unavailability and inaccessibility of health-care facilities; Z88.8 Allergy status to other drugs, medicaments and biological substances; Z86.16 Personal history of COVID-19; Z90.49 Acquired absence of other specified parts of digestive tract; Z68.39 Body mass index [BMI] 39.0-39.9, adult
CPT/HCPCS: 96361; 96374; 96375; 99283; J1200; J1885; J2405; J2765; J7030